=== PATIENT | female | born 1950 | race Caucasian/White ===

== ENCOUNTER 2016-11-06 17:52 | Inpatient (IN) | payer MEDICARE, MEDICAID ==
[~2016-11-06] VITALS: Ht 165.1 cm; Wt 86.0 kg
[2016-11-06] MEDS ORDERED: ONDANSETRON 4 MG INJ IV STA (20:45)
[2016-11-06] MEDS ORDERED: SOD CHLORIDE 0.9% 250 ML IV STA (20:45)
[2016-11-06] MEDS ORDERED: morphine 2 MG INJ IV STA (20:45)
[2016-11-06 21:28] LABS: ADD SCAN DIFF NO
--- NOTE | 2016-11-06 21:28 | ERA ---
ER Documentation Chief Complaint Date/Time DATE: 11/06/16 TIME: 21:25 Chief Complaint HAS END STAGE OF CIRRHOSIS, PER SON BODY ACHES, ASCITIS, BACK PAIN, WEAK HPI This is 66-year-old female who is here for general body pain, generalized weakness, worsening jaundice. The patient is also getting some altered mental status. The patient has a baseline mental status of some mild confusion with the son at bedside says that her confusion is getting a bit worse. She is on lactulose for elevated ammonia. He states she is taking her medication. The patient was taken to the [facility] about a month ago because she came back from [place] with severe jaundice. He discovered that she has cirrhosis of the liver likely due to alcohol abuse in the past. She was there for a week and was discharged home looking better however she is progressively gotten worse. ROS All systems reviewed and are negative except as per history of present illness. PMhx/Soc Medical and Surgical Hx: pt denies Surgical Hx History of Surgery: No Anesthesia Reaction: No Hx Neurological Disorder: No Hx Respiratory Disorders: No Hx Cardiac Disorders: Yes (hx of htn) Hx Psychiatric Problems: No Hx Miscellaneous Medical Probl: Yes (hx of liver cirrhosis) Hx Alcohol Use: Yes (socially) Hx Substance Use: No Hx Tobacco Use: No Smoking Status: Former smoker FmHx Family History: No coronary disease Physical Exam Vitals Vital Signs Date Time Temp Pulse Resp B/P Pulse Ox O2 Delivery O2 Flow Rate FiO2 11/06/16 21:00 97.7 98 21 126/75 99 Room Air 11/06/16 17:56 97.5 103 18 112/59 99 Physical Exam Const: Well-developed, well-nourished Head: Atraumatic, normocephalic Eyes: Normal Conjunctiva, PERRLA, EOMI, icteric sclera, no nystagmus ENT: Normal External Ears, Nose and Mouth, moist mucus membranes. Neck: Full range of motion. No meningismus, no lymphadenopathy. Resp: Clear to auscultation bilaterally, no wheezing, rhonchi, rales Cardio: Tachycardia, no murmurs, S1 S2 present Abd: Soft, non tender x 4, mild distended. Normal bowel sounds, no guarding or rebound, no pulsitile abdominal masses or bruits Skin: No petechiae or rashes, no ecchymosis , no maculopapular rash, jaundice Back: No midline or flank tenderness Ext: No cyanosis, +4 edema, FROM x 4, normal inspection, neurovascularly intact x 4 Neur: Groggy but will answer basic questions somewhat confused STR 5/5 x 4, sensation intact x 4, no focal findings, cerebellum intact Psych: Slight confusion Result Diagram: 11/06/16211811/06/162118 Results 24 hrs Laboratory Tests Test 11/06/16 21:19 White Blood Count 9.110^3/ul Red Blood Count 2.9910^6/ul Hemoglobin 10.9g/dl Hematocrit 30.9% Mean Corpuscular Volume 103.3fl Mean Corpuscular Hemoglobin 36.5pg Mean Corpuscular Hemoglobin Concent 35.3g/dl Red Cell Distribution Width 14.4% Platelet Count 5110^3/UL Mean Platelet Volume 13.9fl Neutrophils % 69.0% Lymphocytes % 23.0% Monocytes % 7.0% Eosinophils % 1.0% Neutrophils # 6.310^3/ul Lymphocytes # 2.110^3/ul Monocytes # 0.610^3/ul Eosinophils # 0.110^3/ul Platelet Estimate PLT APPEAR DECREASED Prothrombin Time 19.0Sec Prothrombin Time Ratio 1.5 INR International Normalized Ratio 1.58 Activated Partial Thromboplast Time 40.5Sec Sodium Level 130mmol/L Potassium Level 3.9mmol/L Chloride Level 95mmol/L Carbon Dioxide Level 24mmol/L Anion Gap 15 Blood Urea Nitrogen 45mg/dl Creatinine 2.23mg/dl Glucose Level 101mg/dl Calcium Level 8.1mg/dl Total Bilirubin 8.1mg/dl Direct Bilirubin 5.20mg/dl Indirect Bilirubin 2.9mg/dl Aspartate Amino Transf (AST/SGOT) 134IU/L Alanine Aminotransferase (ALT/SGPT) 117IU/L Alkaline Phosphatase 134IU/L Ammonia 111umol/l Troponin I 0.036ng/ml Total Protein 5.9g/dl Albumin 2.5g/dl Globulin 3.40g/dl Albumin/Globulin Ratio 0.73 Lipase 307U/L Current Medications Medications (Trade) Dose Ordered Sig/Shayy Route PRN Reason Start Time Stop Time Status Last Admin Dose Admin Sodium Chloride (NS) 250 ml @ 250 mls/hr Q1H STAT IV 11/06/16 20:45 11/06/16 21:44 DC 11/06/16 21:14 Morphine Sulfate (morphine) 2 mg ONCE STAT IV 11/06/16 20:45 11/06/16 20:51 DC 11/06/16 21:15 Ondansetron HCl (Zofran Inj) 4 mg ONCE STAT IV 11/06/16 20:45 11/06/16 20:51 DC 11/06/16 21:36 Procedures/MDM PROCEDURE: XR Chest. CLINICAL INDICATION: Chest pain. Abdominal pain TECHNIQUE: Portable AP upright view of the chest was obtained. COMPARISON: None. FINDINGS: The cardiomediastinal silhouette is within normal limits. The lungs are clear. There is no evidence for pleural effusion, pneumothorax or pulmonary vascular congestion. The osseous structures are intact with no evidence for acute abnormality. RPTAT:HJJR IMPRESSION: No evidence for acute intrathoracic pathology. Physician Donato Date Time Electronically viewed and signed by Olayinka Braga Physician on 11/06/2016 22:16 JR/ CC: ILDEFONSO MALDONADO DO Patient's ammonia level is 111. We will add some lactulose. Will admit for hyperammonemia as a cause of his altered mental status. We will get a CT scan now. Will admit to panel. Departure Diagnosis: Primary Impression: Hyperammonemia Condition: Stable ILDEFONSO MALDONADO DO Nov 06, 2016 21:28
[2016-11-06 21:31] LABS: ABNORMAL IP MESSAGE 1; HEMATOCRIT 30.9 % (37.0-47.0); HEMOGLOBIN 10.9 g/dl (12.0-16.0); MEAN CORPUSCULAR HEMOGLOBIN 36.5 pg (29.0-33.0); MEAN CORPUSCULAR HGB CONC 35.3 g/dl (32.0-37.0); MEAN CORPUSCULAR VOLUME 103.3 fl (82.0-101.0); MEAN PLATELET VOLUME 13.9 fl (7.4-10.4); PLATELET COUNT 51 10^3/UL (140-415); RED BLOOD COUNT 2.99 10^6/ul (4.20-5.40); RED CELL DISTRIBUTION WIDTH 14.4 % (11.5-14.5); WHITE BLOOD COUNT 9.1 10^3/ul (4.8-10.8)
[2016-11-06 21:53] LABS: INR 1.58; PT RATIO 1.5
[2016-11-06 21:54] LABS: PARTIAL THROMBOPLASTIN TIME 40.5 Sec (25.0-35.0)
[2016-11-06 21:58] LABS: ALBUMIN 2.5 g/dl (3.3-4.9); ALBUMIN/GLOBULIN RATIO 0.73; BILIRUBIN,DIRECT 5.2 mg/dl (0.00-0.20); BILIRUBIN,INDIRECT 2.9 mg/dl (0-1.1); BILIRUBIN,TOTAL 8.1 mg/dl (0.2-1.3); CALCIUM 8.1 mg/dl (8.4-10.2); CREATININE 2.23 mg/dl (0.44-1.00); EOSINOPHILS # 0.1 10^3/ul (0.0-0.5); LYMPHOCYTES # 2.1 10^3/ul (0.8-2.9); MONOCYTE # 0.6 10^3/ul (0.3-0.9); NEUTROPHIL # 6.3 10^3/ul (1.6-7.5); PLATELET ESTIMATE PLT APPEAR DECREASED; POTASSIUM 3.9 mmol/L (3.5-5.1); TOTAL PROTEIN 5.9 g/dl (6.1-8.1)
[2016-11-06 22:09] LABS: TROPONIN-I 0.036 ng/ml (0.00-0.12)
--- NOTE | 2016-11-06 22:16 | RADRPT ---
PROCEDURE: XR Chest. CLINICAL INDICATION: Chest pain. Abdominal pain TECHNIQUE: Portable AP upright view of the chest was obtained. COMPARISON: None. FINDINGS: The cardiomediastinal silhouette is within normal limits. The lungs are clear. There is no evidenc e for pleural effusion, pneumothorax or pulmonary vascular congestion. The osseous structures are i ntact with no evidence for acute abnormality. RPTAT:HJJR IMPRESSION: No evidence for acute intrathoracic pathology. Physician Donato Date Time Electronically viewed and signed by Physician Donato on 11/06/2016 22:16 JR/
[2016-11-06] MEDS ORDERED: SOD CHLORIDE 0.9% 1,000 ML IV SCH (22:59)
[2016-11-06] MEDS ORDERED: LACTULOSE 30ML CUP PO ONE (23:00)
[2016-11-06] MEDS ORDERED: ONDANSETRON 4 MG INJ IV PRN (23:00)
[2016-11-06] MEDS ORDERED: ACETAMINOPHEN 325 MG TAB PO PRN (23:00)
[2016-11-07] MEDS ORDERED: PROP40TA4 PO (00:02)
[2016-11-07] MEDS ORDERED: THIA50TA10 PO (00:02)
[2016-11-07] MEDS ORDERED: PANT40TA4 PO (00:02)
[2016-11-07] MEDS ORDERED: SPIR100T31 PO (00:02)
[2016-11-07] MEDS ORDERED: LACT10SO5 PO (00:02)
[2016-11-07 00:15] VITALS: TEMP 98.9
[2016-11-07] MEDS ORDERED: morphine 4 MG/ML VIAL IV STA (00:35)
--- NOTE | 2016-11-07 00:53 | RADRPT ---
PROCEDURE: CT Brain without contrast. CLINICAL INDICATION: Altered mental status TECHNIQUE: A multiplanar CT of the brain was performed on a CT scanner utilizing axial imaging fro m the skull base through the vertex without IV contrast. The CTDIvol is 45.01 mGy and the DLP is 72 0.23 mGycm. One or more of the following dose reduction techniques were utilized: Automated exposu re control, adjustment of the mA and/or kV according to patient size, use of iterative reconstructio n technique. COMPARISON: None FINDINGS: No evidence of intracranial hemorrhage or abnormal extra-axial fluid collection. The brain parenchyma is normal attenuation morphology with preservation of newell white differentiatio n and age appropriate size of the ventricles and subarachnoid spaces. The basal cisterns, posterior fossa contents, brainstem, craniocervical junction, orbits, pituitary axis, paranasal sinuses, mastoid air cells, and calvarium are unremarkable. IMPRESSION: 1. No intracranial hemorrhage or acute intracranial abnormality. RPTAT:AAJJ Physician Virgie Date Time Electronically viewed and signed by Physician Virgie on 11/07/2016 00:53 GERMAINE/
[2016-11-07 01:00] VITALS: BP 127/58; PULSE 83; RESP 18
[2016-11-07 01:13] VITALS: Ht 165.1 cm; Wt 86.0 kg
[2016-11-07] MEDS ORDERED: ONDANSETRON 4 MG INJ IV PRN (02:30)
[2016-11-07] MEDS: ALBUMIN HUMAN 25% 100 ML IV SCH ×3 (03:42→17:57)
--- NOTE | 2016-11-07 05:24 | HP ---
Date/Time of Note Date/Time of Note DATE: 11/07/16 TIME: 05:03 Assessment/Plan Lines/Catheters IV C[facility] Type (from [facility] Saline Lock Assessment/Plan Assessment/Plan 1. Hepatic Encephalopathy - Keep NPO except meds. Formal speech/swallow eval in am - lactulose either orally or [place] 2. Alcoholic Liver Cirrhosis - Lasix, Aldactone, and propranolol - Will obtain abd u/s - will place a GI consult especially given elevated bili 3. Renal Insufficiency - monitor kidney function closely. renal insufficiency could possibly from type 2 Hepato-renal syndrome. Will place Nephrology consult and obtain Renal u/s 4. Elevated transaminases 2/2 cirrhosis - see above 5. Hyponatremia - monitor for now. This is a manifestation of liver disease 6. Mild pancreatitis - keep NPO. Pain meds as needed HPI/ROS Admit Date/Time Admit Date/Time Nov 06, 2016 at 23:02 Hx of Present Illness This is a 66 yo female with hx of alcoholic liver cirrhosis, kidney disease who presented to ER with family for altered mentation. Pt is sleepy and lethargic and as such information was gathered from chart review, family and Er physician. AMS has been progressively getting worse along with jaundice for about a month or so. In ER, labs showed ammonia of 111, Tbili 8.1, Na 130, cr 2.23, AST/ALT in 100s, lipase 307. Head CT showed no intracranial hemorrhage or acute intracranial abnormality. . PMH/Family/Social Social History Smoking Status: Former smoker Exam/Review of Systems Vital Signs Vitals Vital Signs Date Time Temp Pulse Resp B/P Pulse Ox O2 Delivery O2 Flow Rate FiO2 11/07/16 01:00 98.4 83 18 127/58 94 Room Air Exam Constitutional: other (sleepy. no acute distress) Head: atraumatic, normocephalic Eyes: icteric Respiratory: clear to auscultation Cardiovascular: other (tachycardic) Gastrointestinal: soft, tender Extremities: normal pulses Labs Result Diagram: 11/06/16211811/06/162118 Medications Medications Current Medications Sodium Chloride (NS) 1,000 ml @ 80 mls/hr [id number] IV ; Start 11/06/16 at 22:59 ; Stop 11/07/16 at 11:28 Furosemide (Lasix) 40 mg DAILY@06 IV ; Start 11/07/16 at 06:00 Spironolactone 25 mg 25 mg DAILY PO ; Start 11/07/16 at 09:00 Albumin Human (Albumin Human 25%) 100 ml @ 100 mls/hr Q8H IV Last administered on 11/07/16t 03:42; Admin Dose 100 MLS/HR; Start 11/07/16 at 03:00 ; Stop 11/07/16 at 19:59 Lactulose (Enulose) 20 gm Q6 PO ; Start 11/07/16 at 06:00 Pantoprazole (Protonix Iv) 40 mg DAILY@06 IV ; Start 11/07/16 at 06:00 Ondansetron HCl (Zofran Inj) 4 mg Q6H PRN IV NAUSEA AND/OR VOMITING; Start at 02:30 ALESSIA BUSH MD Nov 07, 2016 05:24
[2016-11-07] MEDS: PANTOPRAZOLE 40 MG INJ IV SCH (05:56)
[2016-11-07] MEDS: LACTULOSE 30ML CUP PO SCH ×3 (05:56→17:56)
[2016-11-07] MEDS: FUROSEMIDE 40 MG INJ IV SCH (05:56)
[2016-11-07 06:22] LABS: ADD SCAN DIFF NO
[2016-11-07 06:27] LABS: ABNORMAL IP MESSAGE 1; HEMATOCRIT 25.4 % (37.0-47.0); HEMOGLOBIN 9.2 g/dl (12.0-16.0); MEAN CORPUSCULAR HEMOGLOBIN 37.4 pg (29.0-33.0); MEAN CORPUSCULAR HGB CONC 36.2 g/dl (32.0-37.0); MEAN CORPUSCULAR VOLUME 103.3 fl (82.0-101.0); MEAN PLATELET VOLUME 13.5 fl (7.4-10.4); PLATELET COUNT 38 10^3/UL (140-415); RED BLOOD COUNT 2.46 10^6/ul (4.20-5.40); RED CELL DISTRIBUTION WIDTH 14.2 % (11.5-14.5); WHITE BLOOD COUNT 6.6 10^3/ul (4.8-10.8)
[2016-11-07 07:08] LABS: CALCIUM 8.2 mg/dl (8.4-10.2); MAGNESIUM 1.8 mg/dl (1.7-2.5); PHOSPHORUS 3.3 mg/dl (2.5-4.9); POTASSIUM 3.5 mmol/L (3.5-5.1)
--- NOTE | 2016-11-07 07:51 | RADRPT ---
PROCEDURE: US Abdomen and Retroperitoneum. CLINICAL INDICATION: Abnormal LFTs. TECHNIQUE: Multiple real-time longitudinal and transverse images were acquired of the patient's ab domen and retroperitoneum utilizing a curved array transducer. COMPARISON: None. FINDINGS: Liver demonstrates coarsening of the liver echotexture. No obvious focal liver mass. Portal vein demonstrates hepatopetal flow. Gallbladder demonstrates small stones and sludge. There is no gallbladder wall thickening or perich olecystic fluid. No intra- or extrahepatic biliary dilation. Pancreas is partially visualized and grossly unremarkable. Spleen is enlarged. No hydronephrosis or nephrolithiasis. There is small to moderate ascites. Proximal aorta and IVC are unremarkable. MEASUREMENTS: Liver: 12.9 cm Common Duct: 0.4 cm Right Kidney: 11.6 cm Left Kidney: 9.4 cm Spleen: 14.3 cm IMPRESSION: Liver cirrhosis with stigmata of portal hypertension including splenomegaly and small to moderate ab dominopelvic ascites. Cholelithiasis. RPTAT: EE .Jose Alejandro Pacheco MD, MD Date Time Electronically viewed and signed by .Jose Alejandro Pacheco MD, on 11/07/2016 07:55 .C/
[2016-11-07 07:54] VITALS: BP 118/58; RESP 18
[2016-11-07] MEDS: SPIRONOLACTONE 25 MG TAB PO SCH (09:34)
--- NOTE | 2016-11-07 09:53 | PN ---
Date/Time of Note Date/Time of Note DATE: 11/07/16 TIME: 09:49 Assessment/Plan VTE Prophylaxis VTE Prophylaxis Intervention: SCD's Lines/Catheters IV Catheter Type (from [facility]): Saline Lock Assessment/Plan Chief Complaint/Hosp Course Assessment/Plan: 66-year-old female with altered mental status, history of cirrhosis. 1. Hepatic Encephalopathy-ammonia was 111 on admission, down to 63 now -Continue NPO except meds. Formal speech/swallow eval in am -Continue lactulose either orally or [place], monitor ammonia levels 2. Alcoholic Liver Cirrhosis-patient with some slight abdominal distention as well today per -Continue Lasix, Aldactone, and propranolol -We will attempt paracentesis today given abdominal ultrasound findings of mild to moderate fluid ascites amount. -Follow-up GI consult recommendations especially given elevated bili 3. Renal Insufficiency- renal insufficiency could possibly from type 2 Hepato- renal syndrome. - monitor kidney function closely -Will place Nephrology consult and obtain Renal u/s 4. Elevated transaminases 2/2 cirrhosis - see above 5. Hyponatremia - monitor for now. This is a manifestation of liver disease 6. Mild pancreatitis - keep NPO. Pain meds as needed 7. Thrombocytopenia: Likely secondary to patient's liver disease. No signs of any upper or lower GI bleeding presently -Monitor for now, avoid all anticoagulants. - also consider PT consult Problems: Subjective 24 Hr Interval Summary Free Text/Dictation Patient has slightly less altered mental status this morning. Exam/Review of Systems Vital Signs Vitals Vital Signs Date Time Temp Pulse Resp B/P Pulse Ox O2 Delivery O2 Flow Rate FiO2 11/07/16 07:54 97.9 86 18 118/58 97 11/07/16 01:00 Room Air Intake and Output 11/06/16 11/06/16 11/07/16 15:00 23:00 07:00 Intake Total 100 ml Balance 100 ml Exam Constitutional: other (sleepy. no acute distress) Head: atraumatic, normocephalic Eyes: icteric Respiratory: clear to auscultation Cardiovascular: other (tachycardic) Gastrointestinal: soft, slightly distended, mild tenderness to palpation Extremities: normal pulses Results Result Diagram: 11/07/16 0559 11/07/16 0559 Results 24 hrs Laboratory Tests Test 11/06/16 21:19 11/07/16 05:59 White Blood Count 9.1 6.6 # Red Blood Count 2.99 L 2.46 L Hemoglobin 10.9 L 9.2 L Hematocrit 30.9 L 25.4 L Mean Corpuscular Volume 103.3 H 103.3 H Mean Corpuscular Hemoglobin 36.5 H 37.4 H Mean Corpuscular Hemoglobin Concent 35.3 36.2 Red Cell Distribution Width 14.4 14.2 Platelet Count 51 L 38 #L Mean Platelet Volume 13.9 H 13.5 H Neutrophils % 69.0 Lymphocytes % 23.0 Monocytes % 7.0 Eosinophils % 1.0 Neutrophils # 6.3 Lymphocytes # 2.1 Monocytes # 0.6 Eosinophils # 0.1 Platelet Estimate PLT APPEAR DECREASED Prothrombin Time 19.0 H Prothrombin Time Ratio 1.5 INR International Normalized Ratio 1.58 Activated Partial Thromboplast Time 40.5 H Sodium Level 130 L 134 L Potassium Level 3.9 3.5 Chloride Level 95 L 95 L Carbon Dioxide Level 24 24 Anion Gap 15 19 H Blood Urea Nitrogen 45 H 45 H Creatinine 2.23 H 2.00 H Glucose Level 101 87 Calcium Level 8.1 L 8.2 L Total Bilirubin 8.1 H Direct Bilirubin 5.20 H Indirect Bilirubin 2.9 H Aspartate Amino Transf (AST/SGOT) 134 H Alanine Aminotransferase (ALT/SGPT) 117 H Alkaline Phosphatase 134 H Ammonia 111 H 63 H Troponin I 0.036 Total Protein 5.9 L Albumin 2.5 L Globulin 3.40 H Albumin/Globulin Ratio 0.73 Lipase 307 H Phosphorus Level 3.3 Magnesium Level 1.8 Medications Medications Current Medications Sodium Chloride (NS) 1,000 ml @ 80 mls/hr [id number] IV ; Start 11/06/16 at 22:59 ; Stop 11/07/16 at 11:28 Furosemide (Lasix) 40 mg DAILY@06 IV Last administered on 11/07/16 05:56; Admin Dose 40 MG; Start 11/07/16 at 06:00 Spironolactone 25 mg 25 mg DAILY PO Last administered on 11/07/16 09:34; Admin Dose 25 MG; Start 11/07/16 at 09:00 Albumin Human (Albumin Human 25%) 100 ml @ 100 mls/hr Q8H IV Last administered on 11/07/16 03:42; Admin Dose 100 MLS/HR; Start 11/07/16 at 03:00 ; Stop 11/07/16 at 19:59 Lactulose (Enulose) 20 gm Q6 PO Last administered on 11/07/16 05:56; Admin Dose 20 GM; Start 11/07/16 at 06:00 Pantoprazole (Protonix Iv) 40 mg DAILY@06 IV Last administered on 11/07/16 05: 56; Admin Dose 40 MG; Start 11/07/16 at 06:00 Ondansetron HCl (Zofran Inj) 4 mg Q6H PRN IV NAUSEA AND/OR VOMITING; Start at 02:30 JENISE MONREAL Nov 07, 2016 09:53
[2016-11-07 12:11] LABS: BURR CELLS 1+; EOSINOPHILS # 0.2 10^3/ul (0.0-0.5); LYMPHOCYTES # 2.2 10^3/ul (0.8-2.9); MONOCYTE # 0.3 10^3/ul (0.3-0.9); NEUTROPHIL # 3.8 10^3/ul (1.6-7.5); PLATELET ESTIMATE PLT APPEAR DECREASED; POLYCHROMASIA 1+
[2016-11-07 14:04] VITALS: BP 126/61; RESP 18
--- NOTE | 2016-11-07 16:15 | RADRPT ---
PROCEDURE: US Abdomen (limited). CLINICAL INDICATION: Abdominal pain and distension. TECHNIQUE: Multiple real-time longitudinal and transverse images of the four quadrants of the abdo men were acquired utilizing a curved array transducer. Images were reviewed on a high-resolution PAC S workstation. COMPARISON: Right upper quadrant abdomen ultrasound done earlier the same day. FINDINGS: There is a small amount of free fluid in the 4 quadrants of the abdomen. There is not enough fluid to safely aspirate. Paracentesis was not performed. Incidental note is made of a cystic mass with internal echoes in the pelvis measuring 18.8 x 16.0 x 18.8 cm in transverse, AP, and cranial caudal dimensions. IMPRESSION: 1. Small amount of free fluid with not enough to safely aspirate. Paracentesis was not performed. 2. Cystic mass with internal echoes in the pelvis measuring up to 18.8 cm in maximal dimension. RPTAT: QQ .Elieser Lugo MD, MD Date Time Electronically viewed and signed by .Elieser Lugo MD, on 11/07/2016 16:14 .R/
[2016-11-07] MEDS ORDERED: morphine 2 MG INJ IV PRN (19:00)
[2016-11-07 19:54] VITALS: BP 131/61; RESP 18
[2016-11-07] MEDS ORDERED: morphine 4 MG/ML VIAL IV PRN (20:35)
[2016-11-08 02:00] VITALS: BP 140/63; RESP 18
[2016-11-08] MEDS: LACTULOSE 30ML CUP PO SCH ×5 (05:47→23:42)
[2016-11-08] MEDS: PANTOPRAZOLE 40 MG INJ IV SCH (05:47)
[2016-11-08] MEDS: FUROSEMIDE 40 MG INJ IV SCH (05:48)
[2016-11-08 06:09] LABS: ALBUMIN 2.7 g/dl (3.3-4.9); BILIRUBIN,DIRECT 5.4 mg/dl (0.00-0.20); BILIRUBIN,TOTAL 9.4 mg/dl (0.2-1.3); TOTAL PROTEIN 5.2 g/dl (6.1-8.1)
[2016-11-08 07:37] VITALS: BP 125/58; RESP 18
[2016-11-08 08:56] VITALS: BP 142/65; PULSE 108; RESP 18
[2016-11-08] MEDS: NICOTINE (21 MG/24 HR) PATCH TRANSDERM SCH (09:00)
--- NOTE | 2016-11-08 10:40 | PN ---
Date/Time of Note Date/Time of Note DATE: 11/08/16 TIME: 10:38 Assessment/Plan VTE Prophylaxis VTE Prophylaxis Intervention: SCD's Lines/Catheters IV Catheter Type (from [facility]): Saline Lock Assessment/Plan Chief Complaint/Hosp Course Assessment/Plan: 66-year-old female with altered mental status -hepatic encephalopathy, history of cirrhosis. 1. Hepatic Encephalopathy-ammonia was 111 on admission, still elevated at 78 -Continue NPO except meds. Follow-up formal speech/swallow eval in am -Will increase lactulose dose today,monitor ammonia levels -Follow-up GI consult, pending 2. Alcoholic Liver Cirrhosis-patient with some slight abdominal distention as well today per -Continue Lasix, Aldactone, and propranolol -We will attempt paracentesis today given abdominal ultrasound findings of mild to moderate fluid ascites amount. -Follow-up GI consult recommendations especially given elevated bili 3. Renal Insufficiency- renal insufficiency could possibly from type 2 Hepato- renal syndrome. - monitor kidney function closely -[place] up nephrology consult and Renal u/s 4. Elevated transaminases 2/2 cirrhosis - see above 5. Hyponatremia - monitor for now. This is a manifestation of liver disease 6. Mild pancreatitis - keep NPO. Pain meds as needed 7. Thrombocytopenia: Likely secondary to patient's liver disease. No signs of any upper or lower GI bleeding presently -Monitor for now, avoid all anticoagulants. - also consider PT consult Problems: Subjective 24 Hr Interval Summary Free Text/Dictation Paracentesis was attempted yesterday but not able to be performed as there was not enough fluid to be extracted. Patient still having altered mental status was slightly more elevated ammonia levels this morning. Has been taking lactulose. Family updated at the bedside today. Exam/Review of Systems Vital Signs Vitals Vital Signs Date Time Temp Pulse Resp B/P Pulse Ox O2 Delivery O2 Flow Rate FiO2 11/08/16 08:56 108 18 142/65 95 Room Air 11/08/16 07:37 98.6 Intake and Output 11/07/16 11/07/16 11/08/16 15:00 23:00 07:00 Intake Total 100 ml 100 ml 100 ml Balance 100 ml 100 ml 100 ml Exam Constitutional: other (sleepy. no acute distress) Head: atraumatic, normocephalic Eyes: icteric Respiratory: clear to auscultation Cardiovascular: other (tachycardic) Gastrointestinal: soft, slightly distended, mild tenderness to palpation Extremities: normal pulses Results Result Diagram: 11/07/1659 11/07/1659 Results 24 hrs Laboratory Tests Test 11/08/16 05:17 Total Bilirubin 9.4 H Direct Bilirubin 5.40 H Indirect Bilirubin 4.0 H Aspartate Amino Transf (AST/SGOT) 82 H Alanine Aminotransferase (ALT/SGPT) 82 H Alkaline Phosphatase 76 Ammonia 78 H Total Protein 5.2 L Albumin 2.7 L Lipase 228 Medications Medications Current Medications Furosemide (Lasix) 40 mg DAILY@06 IV Last administered on 11/08/16 05:48; Admin Dose 40 MG; Start 11/07/16 at 06:00 Spironolactone (Aldactone) 25 mg DAILY PO Last administered on 11/07/16 09:34 ; Admin Dose 25 MG; Start 11/07/16 at 09:00 Pantoprazole (Protonix Iv) 40 mg DAILY@06 IV Last administered on 11/08/16 05: 47; Admin Dose 40 MG; Start 11/07/16 at 06:00 Ondansetron HCl (Zofran Inj) 4 mg Q6H PRN IV NAUSEA AND/OR VOMITING; Start at 02:30 Nicotine (Nicoderm 21 Mg/ 24hr) 1 patch DAILY TRANSDERM ; Start 11/08/16 at 09: 00 Lactulose (Enulose) 30 gm Q6 PO ; Start 11/08/16 at 12:00 Morphine Sulfate (morphine) 2 mg Q3H PRN IV pain; Start 11/08/16 at 11:35 JENISE MONREAL Nov 08, 2016 10:40
[2016-11-08] MEDS ORDERED: ALBUTEROL/IPRATROPIUM (NEB) 3 ML AMP HHN STA (11:09)
[2016-11-08] MEDS: SPIRONOLACTONE 25 MG TAB PO SCH (11:20)
[2016-11-08] MEDS ORDERED: ALBUTEROL/IPRATROPIUM (NEB) 3 ML AMP HHN PRN (11:30)
[2016-11-08] MEDS ORDERED: morphine 4 MG/ML VIAL IV PRN (11:35)
[2016-11-08 13:48] VITALS: BP 115/56; RESP 18
--- NOTE | 2016-11-08 14:01 | CONS ---
Date/Time of Note Date/Time of Note DATE: 11/08/16 TIME: 13:39 Assessment/Plan Assessment/Plan Additional Assessment/Plan Assessment * Acute hepatic encephalopathy, * Hyperammonemia * Hepatic Cirrhosis * Alcohol dependence * Acute renal insufficiency Plan * Patients Maddrey score is 42 ,may benefit from steroids however she finished a 28 day course with steroids so will start with Trental 400 mg tid x 4 weeks * Rifaximin 550 mg BID * Continue present management * Trend ammonia,transaminase level * Case discussed with Dr Cobos * Further orders will depend on clinical course Consultation Date/Type/Reason Admit Date/Time Nov 06, 2016 at 23:02 Date of Consultation: Nov 08, 2016 Type of Consultation: Gastroenterology Reason for Consultation cirrhosis Referring Provider: JENISE MONREAL Hx of Present Illness This is a case of 66 year old female with past medical history of cirrhosis, hyperammonemia,alcohol dependence encephalopathy with multiple hospitalizations at [facility] seen by Dr Cobos.The last hospitalization was October 25 who presented in the emergency room altered level of consciousness.Family claims patient is lethargic ,having body malaise and jaundice.,denies any abdominal pain,hematemesis,nor hematochezia.Family claims to be taking lactulose ,rifaximin and finish a 28 day course of steroids Emergency room course revealed ammonia 111 now 78,bilirubin 9.4,ast 82,alt 82 alkaline phosphatase 76.CBC showed WBC 9.1 ,hemoglobin 10.9.Ultrasound showed Liver cirrhosis with stigmata of portal hypertension including splenomegaly and small to moderate abdominopelvic ascites.Cholelithiasis. Presently patient is more awake ,eating but still with elevated ammonia.I have spoke to one of her daughters and gave her updates regarding plan management Constitutional: improved, no complaints Eyes: no complaints ENT: no complaints Respiratory: no complaints Cardiovascular: no complaints Gastrointestinal: decreased appetite Genitourinary: no complaints Musculoskeletal: no complaints Skin: other (jaundice) Neurologic: no complaints Endocrine: no complaints Lymphatic: no complaints Psychological: nl mood/affect, no complaints Immunologic: no complaints Past Medical History Medical History: gallstones, other (cirrhosis) Past Surgical History Past Surgical Hx: no surgical history Family History Significant Family History: no pertinent family hx Social History Smoking Status: Former smoker Exam/Review of Systems Vital Signs Vitals Vital Signs Date Time Temp Pulse Resp B/P Pulse Ox O2 Delivery O2 Flow Rate FiO2 11/08/16 11:36 100 2.0 11/08/16 11:36 98 22 Nasal Cannula 11/08/16 08:56 142/65 11/08/16 07:37 98.6 Intake and Output 11/07/16 11/07/16 11/08/16 15:00 23:00 07:00 Intake Total 100 ml 100 ml 100 ml Balance 100 ml 100 ml 100 ml Exam Constitutional: frail, well developed Psych: no complaints Head: atraumatic, normocephalic Eyes: PERRL, icteric, nl conjunctiva, nl sclera ENMT: nl external ears & nose, nl lips & teeth, nl nasal mucosa & septum Neck: non-tender, supple Respiratory: clear to auscultation, normal air movement Cardiovascular: nl pulses, regular rate and rhythm Gastrointestinal: bowel sounds, distended, nl liver, spleen, non-tender, soft Musculoskeletal: muscle weakness, nl extremities to inspection Extremities: normal pulses Neurological: confused Skin: nl turgor, No rash or lesions Lymph: nl lymph nodes Results Result Diagram: 11/07/1655811/07/16558 Results 24 hrs Laboratory Tests Test 11/08/16 05:17 Total Bilirubin 9.4 H Direct Bilirubin 5.40 H Indirect Bilirubin 4.0 H Aspartate Amino Transf (AST/SGOT) 82 H Alanine Aminotransferase (ALT/SGPT) 82 H Alkaline Phosphatase 76 Ammonia 78 H Total Protein 5.2 L Albumin 2.7 L Lipase 228 Medications Medications Current Medications Furosemide (Lasix) 40 mg DAILY@06 IV Last administered on 11/08/16 05:48; Admin Dose 40 MG; Start 11/07/16 at 06:00 Spironolactone (Aldactone) 25 mg DAILY PO Last administered on 11/08/16 11:20 ; Admin Dose 25 MG; Start 11/07/16 at 09:00 Pantoprazole (Protonix Iv) 40 mg DAILY@06 IV Last administered on 11/08/16 05: 47; Admin Dose 40 MG; Start 11/07/16 at 06:00 Ondansetron HCl (Zofran Inj) 4 mg Q6H PRN IV NAUSEA AND/OR VOMITING; Start at 02:30 Nicotine (Nicoderm 21 Mg/ 24hr) 1 patch DAILY TRANSDERM Last administered on 09:00; Admin Dose 1 PATCH; Start 11/08/16 at 09:00 Lactulose (Enulose) 30 gm Q6 PO Last administered on 11/08/16 12:34; Admin Dose 30 GM; Start 11/08/16 at 12:00 Morphine Sulfate (morphine) 2 mg Q3H PRN IV pain; Start 11/08/16 at 11:35 CATRACHITO DUBOIS NP Nov 08, 2016 13:49
[2016-11-08 17:18] LABS: ADD SCAN DIFF NO
[2016-11-08 17:20] LABS: ABNORMAL IP MESSAGE 1
[2016-11-08 17:22] LABS: HEMATOCRIT 25.5 % (37.0-47.0); HEMOGLOBIN 8.9 g/dl (12.0-16.0); MEAN CORPUSCULAR HEMOGLOBIN 36.6 pg (29.0-33.0); MEAN CORPUSCULAR HGB CONC 34.9 g/dl (32.0-37.0); MEAN CORPUSCULAR VOLUME 104.9 fl (82.0-101.0); PLATELET COUNT 34 10^3/UL (140-415); RED BLOOD COUNT 2.43 10^6/ul (4.20-5.40); RED CELL DISTRIBUTION WIDTH 14.3 % (11.5-14.5); WHITE BLOOD COUNT 5.5 10^3/ul (4.8-10.8)
[2016-11-08 17:58] LABS: EOSINOPHILS # 0.1 10^3/ul (0.0-0.5); LYMPHOCYTES # 1.7 10^3/ul (0.8-2.9); MONOCYTE # 0.3 10^3/ul (0.3-0.9); NEUTROPHIL # 3.4 10^3/ul (1.6-7.5)
[2016-11-08 17:59] LABS: PLATELET ESTIMATE PLT APPEAR DECREASED
[2016-11-08 19:37] VITALS: BP 122/58; RESP 18
[2016-11-08] MEDS: PENTOXIFYLLINE (SR) 400 MG TAB PO SCH (20:52)
[2016-11-08] MEDS: RIFAXIMIN 550 MG TAB PO SCH (20:52)
[2016-11-08] MEDS ORDERED: morphine 2 MG INJ IV PRN (21:00)
[2016-11-08] MEDS ORDERED: HYDROmorphONE 1 MG/ML SYG IV PRN (21:30)
[2016-11-09 02:24] VITALS: BP 129/60; RESP 18
[2016-11-09] MEDS: LACTULOSE 30ML CUP PO SCH ×2 (05:48→12:27)
[2016-11-09] MEDS: PANTOPRAZOLE 40 MG INJ IV SCH (05:49)
[2016-11-09] MEDS: FUROSEMIDE 40 MG INJ IV SCH (05:49)
[2016-11-09 05:57] LABS: ADD SCAN DIFF NO
[2016-11-09 05:59] LABS: ABNORMAL IP MESSAGE 1; BASOPHILS % 0.2 % (0.0-2.0); EOSINOPHILS # 0.1 10^3/ul (0.0-0.5); EOSINOPHILS % 0.8 % (0.0-7.0); HEMATOCRIT 24.7 % (37.0-47.0); HEMOGLOBIN 8.7 g/dl (12.0-16.0); LYMPHOCYTES # 2.2 10^3/ul (0.8-2.9); LYMPHOCYTES % 36.6 % (15.0-51.0); MEAN CORPUSCULAR HEMOGLOBIN 36.7 pg (29.0-33.0); MEAN CORPUSCULAR HGB CONC 35.2 g/dl (32.0-37.0); MEAN CORPUSCULAR VOLUME 104.2 fl (82.0-101.0); MONOCYTE # 0.4 10^3/ul (0.3-0.9); MONOCYTES % 6.6 % (0.0-11.0); NEUTROPHIL # 3.3 10^3/ul (1.6-7.5); PLATELET COUNT 41 10^3/UL (140-415); RED BLOOD COUNT 2.37 10^6/ul (4.20-5.40); RED CELL DISTRIBUTION WIDTH 14.4 % (11.5-14.5); WHITE BLOOD COUNT 6.1 10^3/ul (4.8-10.8)
[2016-11-09 06:54] LABS: CALCIUM 8.7 mg/dl (8.4-10.2); CREATININE 1.91 mg/dl (0.44-1.00); POTASSIUM 3.4 mmol/L (3.5-5.1)
[2016-11-09 08:03] VITALS: BP 132/67; RESP 20
--- NOTE | 2016-11-09 09:23 | PN ---
Date/Time of Note Date/Time of Note DATE: 11/09/16 TIME: 09:19 Assessment/Plan VTE Prophylaxis VTE Prophylaxis Intervention: ambulation Lines/Catheters [facility] Saline Lock Assessment/Plan Assessment/Plan Assessment * Acute hepatic encephalopathy, * Hyperammonemia * Hepatic Cirrhosis * Alcohol dependence * Acute renal insufficiency Plan * Patients Maddrey score is 42 ,may benefit from steroids however she finished a 28 day course with steroids so will start with Trental 400 mg tid x 4 weeks * Rifaximin 550 mg BID * Continue present management * Case discussed with Dr Cobos * Further orders will depend on clinical course Subjective 24 Hr Interval Summary Free Text/Dictation * Course reviewed * Patient seen and examined * No untoward events overnight * ammonia improved to 52 from 78 * More alert today Exam/Review of Systems Vital Signs Vitals Vital Signs Date Time Temp Pulse Resp B/P Pulse Ox O2 Delivery O2 Flow Rate FiO2 11/09/16 08:03 97.7 119 20 132/67 99 11/08/16 11:36 2.0 11/08/16 11:36 Nasal Cannula Intake and Output 11/08/16 11/08/16 11/09/16 15:00 23:00 07:00 Intake Total 240 ml 620 ml Output Total 300 ml 1100 ml Balance -60 ml -480 ml Exam Constitutional: frail Head: normocephalic Eyes: icteric Neck: non-tender, supple Respiratory: clear to auscultation, normal air movement Cardiovascular: regular rate and rhythm Gastrointestinal: bowel sounds, non-tender, soft Musculoskeletal: muscle weakness Extremities: normal pulses Neurological: focal weakness Skin: nl turgor, No rash or lesions Lymph: nl lymph nodes Results Result Diagram: 11/09/16 0527 11/09/16 0527 Results 24 hrs Laboratory Tests Test 11/08/16 17:12 11/09/16 05:27 White Blood Count 5.5 6.1 Red Blood Count 2.43 L 2.37 L Hemoglobin 8.9 L 8.7 L Hematocrit 25.5 L 24.7 L Mean Corpuscular Volume 104.9 H 104.2 H Mean Corpuscular Hemoglobin 36.6 H 36.7 H Mean Corpuscular Hemoglobin Concent 34.9 35.2 Red Cell Distribution Width 14.3 14.4 Platelet Count 34 L 41 #L Mean Platelet Volume 13.0 H 13.0 H Neutrophils % 62.0 55.0 Band Neutrophils % 1.0 Lymphocytes % 31.0 36.6 Monocytes % 5.0 6.6 Eosinophils % 1.0 0.8 Neutrophils # 3.4 3.3 Lymphocytes # 1.7 2.2 Monocytes # 0.3 0.4 Eosinophils # 0.1 0.1 Platelet Estimate PLT APPEAR DECREASED Basophils % 0.2 Basophils # 0.0 Nucleated Red Blood Cells # 0.0 Sodium Level 139 Potassium Level 3.4 L Chloride Level 97 Carbon Dioxide Level 28 Anion Gap 17 H Blood Urea Nitrogen 37 H Creatinine 1.91 H Glucose Level 103 Calcium Level 8.7 Ammonia 52 H Medications Medications Current Medications Furosemide (Lasix) 40 mg DAILY@06 IV Last administered on 11/09/16 05:49; Admin Dose 40 MG; Start 11/07/16 at 06:00 Spironolactone (Aldactone) 25 mg DAILY PO Last administered on 11/08/16 11:20 ; Admin Dose 25 MG; Start 11/07/16 at 09:00 Pantoprazole (Protonix Iv) 40 mg DAILY@06 IV Last administered on 11/09/16 05: 49; Admin Dose 40 MG; Start 11/07/16 at 06:00 Ondansetron HCl (Zofran Inj) 4 mg Q6H PRN IV NAUSEA AND/OR VOMITING; Start at 02:30 Nicotine (Nicoderm 21 Mg/ 24hr) 1 patch DAILY TRANSDERM Last administered on 09:00; Admin Dose 1 PATCH; Start 11/08/16 at 09:00 Lactulose (Enulose) 30 gm Q6 PO Last administered on 11/09/16 05:48; Admin Dose 30 GM; Start 11/08/16 at 12:00 Pentoxifylline (Trental) 400 mg TID PO Last administered on 11/08/16 20:52; Admin Dose 400 MG; Start 11/08/16 at 21:00; Stop 12/08/16 at 20:59 Rifaximin (Xifaxan) 550 mg BID PO Last administered on 11/08/16 20:52; Admin Dose 550 MG; Start 11/08/16 at 21:00 Hydromorphone HCl (Dilaudid) 0.5 mg Q3H PRN IV PAIN Last administered on t 21:38; Admin Dose 0.5 MG; Start 11/08/16 at 21:30 Morphine Sulfate (morphine) 2 mg Q3H PRN IV pain; Start 11/08/16 at 21:00 CATRACHITO DUBOIS NP Nov 09, 2016 09:22
--- NOTE | 2016-11-09 09:37 | DS ---
Date/Time of Note Date/Time of Note DATE: 11/09/16 TIME: 09:33 Discharge Summary Admission/Discharge Info Admit Date/Time Nov 06, 2016 at 23:02 Discharge Date/Time Discharge Diagnosis 1. Hepatic Encephalopathy 2. Alcoholic Liver Cirrhosis 3. Renal Insufficiency 4. Elevated transaminases 2/2 cirrhosis 5. Hyponatremia 6. Mild pancreatitis-resolved 7. Thrombocytopenia Patient Condition: Stable Hx of Present Illness . Hospital Course This is a 66 yo female with hx of alcoholic liver cirrhosis, kidney disease who presented to ER with family for altered mentation. Pt is sleepy and lethargic and as such information was gathered from chart review, family and Er physician. AMS has been progressively getting worse along with jaundice for about a month or so. In ER, labs showed ammonia of 111, Tbili 8.1, Na 130, cr 2.23, AST/ALT in 100s, lipase 307. Head CT showed no intracranial hemorrhage or acute intracranial abnormality. Patient was admitted to medical surgical unit, seen by GI team. She was given lactulose to help treat her hepatic encephalopathy. She was also started on rifaximin. Her lipase levels came down to normal, she became slightly more alert. Her ammonia levels have come down to the 50-60 range. Physical therapy has been working with her as well. Her family is also trying to contact the [facility] hepatology center for possible outpatient follow-up, but in the meantime she tentatively has been accepted to [facility] for transfer, although we are still waiting on a bed at their facility to open up. Per GI, the patients Maddrey score is 42 ,may benefit from steroids however she finished a 28 day course with steroids so was started on Trental 400 mg tid x 4 weeks as well. Home Meds Reported Medications Lactulose* (Lactulose*) 10 Gm/15 Ml Solution, 10 GM PO Q8, ML 11/07/16 Thiamine* (Vitamin B-1*) Unknown Strength Tablet, 1 TAB PO DAILY, TAB 11/07/16 Propranolol Hcl* (Propranolol Hcl*) 40 Mg Tablet, 40 MG PO BID, TAB 11/07/16 Pantoprazole* (Pantoprazole*) 40 Mg Tablet.dr, 40 MG PO AC BREAKFAST, TAB 11/07/16 Spironolactone* (Spironolactone*) 100 Mg Tablet, 100 MG PO BID, TAB 11/07/16 Primary Care Provider Care Physician No Primary Time spent on discharge: > 30 minutes Pending Labs Laboratory Tests Test 11/08/16 17:12 11/09/16 05:27 White Blood Count 5.510^3/ul (4.8-10.8) 6.110^3/ul (4.8-10.8) Red Blood Count 2.4310^6/ul (4.20-5.40) 2.3710^6/ul (4.20-5.40) Hemoglobin 8.9g/dl (12.0-16.0) 8.7g/dl (12.0-16.0) Hematocrit 25.5% (37.0-47.0) 24.7% (37.0-47.0) Mean Corpuscular Volume 104.9fl (82.0-101.0) 104.2fl (82.0-101.0) Mean Corpuscular Hemoglobin 36.6pg (29.0-33.0) 36.7pg (29.0-33.0) Mean Corpuscular Hemoglobin Concent 34.9g/dl (32.0-37.0) 35.2g/dl (32.0-37.0) Red Cell Distribution Width 14.3% (11.5-14.5) 14.4% (11.5-14.5) Platelet Count 3410^3/UL (140-415) 4110^3/UL (140-415) Mean Platelet Volume 13.0fl (7.4-10.4) 13.0fl (7.4-10.4) Neutrophils % 62.0% (39.0-77.0) 55.0% (39.0-77.0) Band Neutrophils % 1.0% (0.0-5.0) Lymphocytes % 31.0% (15.0-51.0) 36.6% (15.0-51.0) Monocytes % 5.0% (0.0-11.0) 6.6% (0.0-11.0) Eosinophils % 1.0% (0.0-7.0) 0.8% (0.0-7.0) Neutrophils # 3.410^3/ul (1.6-7.5) 3.310^3/ul (1.6-7.5) Lymphocytes # 1.710^3/ul (0.8-2.9) 2.210^3/ul (0.8-2.9) Monocytes # 0.310^3/ul (0.3-0.9) 0.410^3/ul (0.3-0.9) Eosinophils # 0.110^3/ul (0.0-0.5) 0.110^3/ul (0.0-0.5) Platelet Estimate PLT APPEAR DECREASED Basophils % 0.2% (0.0-2.0) Basophils # 0.010^3/ul (0.0-0.1) Nucleated Red Blood Cells # 0.010^3/ul (0.0-0.0) Sodium Level 139mmol/L (135-144) Potassium Level 3.4mmol/L (3.5-5.1) Chloride Level 97mmol/L (97-110) Carbon Dioxide Level 28mmol/L (21-31) Anion Gap 17 (8-16) Blood Urea Nitrogen 37mg/dl (7-20) Creatinine 1.91mg/dl (0.44-1.00) Glucose Level 103mg/dl (70-220) Calcium Level 8.7mg/dl (8.4-10.2) Ammonia 52umol/l (9-30) JENISE MONREAL Nov 09, 2016 09:37
--- NOTE | 2016-11-09 09:44 | PN ---
Date/Time of Note Date/Time of Note DATE: 11/09/16 TIME: 09:39 Assessment/Plan VTE Prophylaxis VTE Prophylaxis Intervention: SCD's Lines/Catheters [facility] (from [facility] Saline Lock Assessment/Plan Chief Complaint/Hosp Course Assessment/Plan: 66-year-old female with altered mental status -hepatic encephalopathy, history of cirrhosis. 1. Hepatic Encephalopathy-ammonia was 111 on admission, down to 56 today, patient slightly more alert -Continue diet recommendations per speech team, monitor Continue current lactulose dose monitor ammonia levels 2. Liver Cirrhosis-likely secondary to alcoholic his -Continue Lasix, Aldactone, and propranolol, --Follow-up GI consult recommendations, continue Trental and rifaximin. -Patient has tentatively been accepted to [facility] for transfer, however, likely will take some time to have a bed become available. In the meantime family has been provided with hepatology [facility] liver clinic phone for them to call and try to set up outpatient liver transplant evaluation there. 3. Renal Insufficiency- renal insufficiency could possibly from type 2 Hepato- renal syndrome. Urine output is adequate - monitor kidney function closely Follow-up on nephrology consult and Renal u/s 4. Elevated transaminases 2/2 cirrhosis - see above 5. Hyponatremia - monitor for now. This is a manifestation of liver disease 6. Mild pancreatitis-resolved Monitor, pain meds as needed 7. Thrombocytopenia: Likely secondary to patient's liver disease. No signs of any upper or lower GI bleeding presently. -Monitor for now, avoid all anticoagulants. Follow-up PT consult recommendations Problems: Subjective 24 Hr Interval Summary Free Text/Dictation Patient slightly more alert today. Family updated at the bedside. Spoke with [facility] team as well yesterday regarding possible transfer. Seen by GI team yesterday as well. Exam/Review of Systems Vital Signs Vitals Vital Signs Date Time Temp Pulse Resp B/P Pulse Ox O2 Delivery O2 Flow Rate FiO2 11/09/16 08:03 97.7 119 20 132/67 99 11/08/16 11:36 2.0 11/08/16 11:36 Nasal Cannula Intake and Output 11/08/16 11/08/16 11/09/16 15:00 23:00 07:00 Intake Total 240 ml 620 ml Output Total 300 ml 1100 ml Balance -60 ml -480 ml Exam Constitutional: Slightly more alert, no acute distress Head: atraumatic, normocephalic Eyes: icteric Respiratory: clear to auscultation Cardiovascular: S1, S2 heard Gastrointestinal: soft, slightly distended, mild tenderness to palpation Extremities: normal pulses Results Result Diagram: 11/09/1652611/09/16526 Results 24 hrs Laboratory Tests Test 11/08/16 17:12 11/09/16 05:27 White Blood Count 5.5 6.1 Red Blood Count 2.43 L 2.37 L Hemoglobin 8.9 L 8.7 L Hematocrit 25.5 L 24.7 L Mean Corpuscular Volume 104.9 H 104.2 H Mean Corpuscular Hemoglobin 36.6 H 36.7 H Mean Corpuscular Hemoglobin Concent 34.9 35.2 Red Cell Distribution Width 14.3 14.4 Platelet Count 34 L 41 #L Mean Platelet Volume 13.0 H 13.0 H Neutrophils % 62.0 55.0 Band Neutrophils % 1.0 Lymphocytes % 31.0 36.6 Monocytes % 5.0 6.6 Eosinophils % 1.0 0.8 Neutrophils # 3.4 3.3 Lymphocytes # 1.7 2.2 Monocytes # 0.3 0.4 Eosinophils # 0.1 0.1 Platelet Estimate PLT APPEAR DECREASED Basophils % 0.2 Basophils # 0.0 Nucleated Red Blood Cells # 0.0 Sodium Level 139 Potassium Level 3.4 L Chloride Level 97 Carbon Dioxide Level 28 Anion Gap 17 H Blood Urea Nitrogen 37 H Creatinine 1.91 H Glucose Level 103 Calcium Level 8.7 Ammonia 52 H Medications Medications Current Medications Furosemide (Lasix) 40 mg DAILY@06 IV Last administered on 11/09/16 05:49; Admin Dose 40 MG; Start 11/07/16 at 06:00 Spironolactone (Aldactone) 25 mg DAILY PO Last administered on 11/08/16 11:20 ; Admin Dose 25 MG; Start 11/07/16 at 09:00 Pantoprazole (Protonix Iv) 40 mg DAILY@06 IV Last administered on 11/09/16 05: 49; Admin Dose 40 MG; Start 11/07/16 at 06:00 Ondansetron HCl (Zofran Inj) 4 mg Q6H PRN IV NAUSEA AND/OR VOMITING; Start at 02:30 Nicotine (Nicoderm 21 Mg/ 24hr) 1 patch DAILY TRANSDERM Last administered on 09:00; Admin Dose 1 PATCH; Start 11/08/16 at 09:00 Lactulose (Enulose) 30 gm Q6 PO Last administered on 11/09/16 05:48; Admin Dose 30 GM; Start 11/08/16 at 12:00 Pentoxifylline (Trental) 400 mg TID PO Last administered on 11/08/16 20:52; Admin Dose 400 MG; Start 11/08/16 at 21:00; Stop 12/08/16 at 20:59 Rifaximin (Xifaxan) 550 mg BID PO Last administered on 11/08/16 20:52; Admin Dose 550 MG; Start 11/08/16 at 21:00 Hydromorphone HCl (Dilaudid) 0.5 mg Q3H PRN IV PAIN Last administered on 21:38; Admin Dose 0.5 MG; Start 11/08/16 at 21:30 Morphine Sulfate (morphine) 2 mg Q3H PRN IV pain; Start 11/08/16 at 21:00 JENISE MONREAL Nov 09, 2016 09:44
[2016-11-09] MEDS: RIFAXIMIN 550 MG TAB PO SCH (10:04)
[2016-11-09] MEDS: PENTOXIFYLLINE (SR) 400 MG TAB PO SCH ×2 (10:04→12:27)
[2016-11-09] MEDS: SPIRONOLACTONE 25 MG TAB PO SCH (10:04)
[2016-11-09] MEDS: NICOTINE (21 MG/24 HR) PATCH TRANSDERM SCH (10:05)
[2016-11-09 14:00] VITALS: BP 146/65; RESP 18
--- NOTE | 2016-11-09 14:21 | PDOCDIS ---
Discharge Instructions DIAGNOSIS Discharge Diagnosis 1. Hepatic Encephalopathy 2. Alcoholic Liver Cirrhosis 3. Renal Insufficiency 4. Elevated transaminases 2/2 cirrhosis 5. Hyponatremia 6. Mild pancreatitis-resolved 7. Thrombocytopenia CONDITION Patient Condition: Stable HOME CARE INSTRUCTIONS: Special Diet: 2gm Na, Mechanical Soft JENISE MONREAL Nov 09, 2016 14:21
[2016-11-10] MEDS ORDERED: PANTOPRAZOLE (EC) 40 MG TAB PO SCH (06:00)
== END 2016-11-09 15:50 | disposition short-term general hospital (02) | DRG 432 ==
LOC: E/R 17:52 → MS2 23:02
PROVIDERS: ADMIT Internal Medicine; ATTEND Internal Medicine
DX: K70.40 Alcoholic hepatic failure without coma (principal); K85.90 Acute pancreatitis without necrosis or infection, unspecified; K70.31 Alcoholic cirrhosis of liver with ascites; K76.7 Hepatorenal syndrome; E87.1 Hypo-osmolality and hyponatremia; D69.6 Thrombocytopenia, unspecified; R17 Unspecified jaundice; K76.6 Portal hypertension; N28.9 Disorder of kidney and ureter, unspecified; R16.1 Splenomegaly, not elsewhere classified
CPT/HCPCS: 70450; 71010; 76700; 76705; 80048; 80053; 80076; 82140; 83690; 83735; 84100; 84484; 85025; 85610; 85730; 87081; 92610; 94664; 96374; 96375; 96376; C9113; J1170; J1940; J2270; J2405; J7030; J7040; P9047